=== PATIENT | female | born 1960 | race Asian ===

== ENCOUNTER 2017-06-23 11:35 | Inpatient (IN) | payer BC ==
[2017-06-23] MEDS ORDERED: ONDANSETRON 4 MG INJ IV (15:00)
[2017-06-23] MEDS: SOD CHLORIDE 0.9% 1,000 ML IV (15:39)
[2017-06-23] MEDS: LEVOFLOXACIN 750MG/D5W (PMX) 150 ML IVPB (16:31)
[2017-06-23] MEDS ORDERED: ACETAMINOPHEN 325 MG TAB PO (19:00)
[2017-06-23] MEDS ORDERED: DOCUSATE SODIUM 100 MG CAP PO (19:00)
[2017-06-24] MEDS: SOD CHLORIDE 0.9% 1,000 ML IV (04:55)
[2017-06-24] MEDS: PANTOPRAZOLE (EC) 40 MG TAB PO (05:26)
[2017-06-24] MEDS: ALBUTEROL/IPRATROPIUM (NEB) 3 ML AMP HHN ×3 (05:47→22:06)
[2017-06-24 06:11] LABS: ADD MAN DIFF? NO
[2017-06-24 06:18] LABS: WHITE BLOOD COUNT 9.6 10^3/ul (4.8-10.8)
[2017-06-24 06:18] LABS: BASOPHILS % 0.2 % (0.0-2.0); EOSINOPHILS # 0.1 10^3/ul (0.0-0.5); EOSINOPHILS % 0.8 % (0.0-7.0); HEMATOCRIT 34.4 % (37.0-47.0); HEMOGLOBIN 11.2 g/dl (12.0-16.0); LYMPHOCYTES # 1.8 10^3/ul (0.8-2.9); LYMPHOCYTES % 19.1 % (15.0-51.0); MEAN CORPUSCULAR HEMOGLOBIN 29.2 pg (29.0-33.0); MEAN CORPUSCULAR HGB CONC 32.6 g/dl (32.0-37.0); MEAN CORPUSCULAR VOLUME 89.6 fl (82.0-101.0); MEAN PLATELET VOLUME 10.4 fl (7.4-10.4); MONOCYTE # 0.7 10^3/ul (0.3-0.9); MONOCYTES % 6.9 % (0.0-11.0); NEUTROPHILS % 72.6 % (39.0-77.0); PLATELET COUNT 176 10^3/UL (140-415); RED BLOOD COUNT 3.84 10^6/ul (4.20-5.40); RED CELL DISTRIBUTION WIDTH 13.2 % (11.5-14.5)
[2017-06-24 06:56] LABS: ANION GAP 13 (8-16); BLOOD UREA NITROGEN 10 mg/dl (7-20); CALCIUM 8.7 mg/dl (8.4-10.2); CARBON DIOXIDE 27 mmol/L (21-31); CHLORIDE 110 mmol/L (97-110); CREATININE 0.68 mg/dl (0.44-1.00); GLUCOSE 97 mg/dl (70-220); POTASSIUM 3.8 mmol/L (3.5-5.1); SODIUM 146 mmol/L (135-144)
[2017-06-24] MEDS: ENOXAPARIN 30 MG/0.3 ML SYG SC (08:10)
[2017-06-24] MEDS: GUAIFENESIN/CODEINE 5ML CUP PO ×2 (12:23→17:49)
[2017-06-24] MEDS: LEVOFLOXACIN 750MG/D5W (PMX) 150 ML IVPB (16:32)
[2017-06-24] MEDS: PANTOPRAZOLE 40 MG INJ IV (17:49)
[2017-06-24] MEDS ORDERED: PANTOPRAZOLE 40 MG INJ IV (18:00)
[2017-06-25] MEDS: ZOLPIDEM 5 MG TAB PO (00:13)
[2017-06-25] MEDS: PANTOPRAZOLE 40 MG INJ IV ×2 (06:07→17:54)
[2017-06-25 06:08] LABS: ADD MAN DIFF? NO
[2017-06-25 06:13] LABS: WHITE BLOOD COUNT 8.5 10^3/ul (4.8-10.8)
[2017-06-25 06:13] LABS: BASOPHIL # 0.1 10^3/ul (0.0-0.1); BASOPHILS % 0.7 % (0.0-2.0); EOSINOPHILS # 0.2 10^3/ul (0.0-0.5); EOSINOPHILS % 2.6 % (0.0-7.0); HEMATOCRIT 36.7 % (37.0-47.0); LYMPHOCYTES # 2.4 10^3/ul (0.8-2.9); MEAN CORPUSCULAR HEMOGLOBIN 29.6 pg (29.0-33.0); MEAN CORPUSCULAR HGB CONC 32.7 g/dl (32.0-37.0); MEAN CORPUSCULAR VOLUME 90.4 fl (82.0-101.0); MONOCYTE # 0.6 10^3/ul (0.3-0.9); MONOCYTES % 6.9 % (0.0-11.0); NEUTROPHIL # 5.2 10^3/ul (1.6-7.5); NEUTROPHILS % 61.4 % (39.0-77.0); PLATELET COUNT 196 10^3/UL (140-415); RED BLOOD COUNT 4.06 10^6/ul (4.20-5.40); RED CELL DISTRIBUTION WIDTH 13.2 % (11.5-14.5)
[2017-06-25 06:42] LABS: ANION GAP 16 (8-16); BLOOD UREA NITROGEN 11 mg/dl (7-20); CALCIUM 9.2 mg/dl (8.4-10.2); CARBON DIOXIDE 29 mmol/L (21-31); CHLORIDE 106 mmol/L (97-110); CREATININE 0.77 mg/dl (0.44-1.00); GLUCOSE 87 mg/dl (70-220); POTASSIUM 4.1 mmol/L (3.5-5.1); SODIUM 147 mmol/L (135-144)
[2017-06-25] MEDS: GUAIFENESIN/CODEINE 5ML CUP PO ×3 (08:17→20:39)
[2017-06-25] MEDS: ENOXAPARIN 30 MG/0.3 ML SYG SC (08:27)
[2017-06-25] MEDS: LEVOFLOXACIN 750MG/D5W (PMX) 150 ML IVPB (15:12)
[2017-06-25] MEDS: ALBUTEROL/IPRATROPIUM (NEB) 3 ML AMP HHN (15:20)
[2017-06-26] MEDS: GUAIFENESIN/CODEINE 5ML CUP PO ×3 (04:30→23:09)
[2017-06-26] MEDS: PANTOPRAZOLE 40 MG INJ IV ×2 (06:43→17:04)
[2017-06-26 06:47] LABS: ANION GAP 16 (8-16); BLOOD UREA NITROGEN 14 mg/dl (7-20); CALCIUM 9.1 mg/dl (8.4-10.2); CARBON DIOXIDE 31 mmol/L (21-31); CHLORIDE 104 mmol/L (97-110); CREATININE 0.77 mg/dl (0.44-1.00); GLUCOSE 92 mg/dl (70-220); POTASSIUM 4.3 mmol/L (3.5-5.1); SODIUM 147 mmol/L (135-144)
[2017-06-26] MEDS: HYDROmorphONE 0.5 MG/0.5 ML SYG IV ×3 (09:19→17:06)
[2017-06-26] MEDS: BARIUM SULFATE 135 ML (E-Z HD) PO (09:21)
[2017-06-26] MEDS: ENOXAPARIN 30 MG/0.3 ML SYG SC (09:26)
[2017-06-26] MEDS ORDERED: DEXTROSE 5% 1,000 ML IV (17:00)
[2017-06-26] MEDS: LEVOFLOXACIN 750MG/D5W (PMX) 150 ML IVPB (17:05)
[2017-06-26] MEDS: DEXTROSE 5% 250 ML IV (20:45)
[2017-06-27] MEDS: DEXTROSE 5% 250 ML IV ×2 (01:38→06:45)
[2017-06-27] MEDS: PANTOPRAZOLE 40 MG INJ IV ×2 (05:28→18:22)
[2017-06-27] MEDS: ENOXAPARIN 30 MG/0.3 ML SYG SC (09:00)
[2017-06-27] MEDS ORDERED: LIDOCAINE 2% (SDV) 5 ML INJ (09:14)
[2017-06-27] MEDS ORDERED: PROPOFOL 20 ML (09:14)
[2017-06-27] MEDS: HYDROmorphONE 0.5 MG/0.5 ML SYG IV (09:51)
[2017-06-27] MEDS: METOCLOPRAMIDE 10 MG INJ IV ×3 (11:23→23:33)
[2017-06-27 14:11] LABS: NIL 0.19 IU/mL; QUANTIFERON(R)-TB GOLD NEGATIVE (NEGATIVE); TB-NIL 0.14 IU/mL
[2017-06-27] MEDS: DEXTROSE 5% 1,000 ML IV (16:30)
[2017-06-27] MEDS: LEVOFLOXACIN 750MG/D5W (PMX) 150 ML IVPB (16:38)
[2017-06-28] MEDS: DEXTROSE 5% 1,000 ML IV ×2 (00:35→03:46)
[2017-06-28] MEDS: PANTOPRAZOLE 40 MG INJ IV ×2 (05:47→17:10)
[2017-06-28] MEDS: METOCLOPRAMIDE 10 MG INJ IV ×4 (05:47→23:56)
[2017-06-28 06:58] LABS: ALANINE AMINOTRANSFERASE 24 IU/L (13-69); ALBUMIN/GLOBULIN RATIO 0.95; ALKALINE PHOSPHATASE 56 IU/L (42-121); ANION GAP 15 (8-16); ASPARTATE AMINO TRANSFERASE 25 IU/L (15-46); BILIRUBIN,INDIRECT 0.7 mg/dl (0-1.1); BILIRUBIN,TOTAL 0.7 mg/dl (0.2-1.3); BLOOD UREA NITROGEN 12 mg/dl (7-20); CALCIUM 9.4 mg/dl (8.4-10.2); CARBON DIOXIDE 28 mmol/L (21-31); CHLORIDE 105 mmol/L (97-110); CREATININE 0.74 mg/dl (0.44-1.00); GLUCOSE 101 mg/dl (70-220); POTASSIUM 3.7 mmol/L (3.5-5.1); SODIUM 144 mmol/L (135-144); TOTAL PROTEIN 8.2 g/dl (6.1-8.1)
[2017-06-28] MEDS: ENOXAPARIN 30 MG/0.3 ML SYG SC (08:54)
[2017-06-28] MEDS: LEVOFLOXACIN 750MG/D5W (PMX) 150 ML IVPB (17:04)
[2017-06-28] MEDS: GUAIFENESIN/CODEINE 5ML CUP PO (17:09)
[2017-06-28] MEDS: ZOLPIDEM 5 MG TAB PO (23:56)
[2017-06-29] MEDS: DEXTROSE 5% 250 ML IV ×7 (00:23→21:58)
[2017-06-29] MEDS: METOCLOPRAMIDE 10 MG INJ IV ×3 (05:23→17:19)
[2017-06-29] MEDS: PANTOPRAZOLE 40 MG INJ IV ×2 (05:23→17:19)
[2017-06-29] MEDS: HYDROmorphONE 0.5 MG/0.5 ML SYG IV ×4 (07:34→19:13)
[2017-06-29] MEDS: ENOXAPARIN 30 MG/0.3 ML SYG SC (10:45)
[2017-06-29] MEDS: GUAIFENESIN/CODEINE 5ML CUP PO ×2 (11:11→17:20)
[2017-06-29] MEDS: LEVOFLOXACIN 750MG/D5W (PMX) 150 ML IVPB (17:04)
[2017-06-29] MEDS: ALBUTEROL/IPRATROPIUM (NEB) 3 ML AMP HHN ×2 (17:13→22:04)
[2017-06-29] MEDS: ZOLPIDEM 5 MG TAB PO (19:59)
[2017-06-29] MEDS: HYDROCODONE/APAP (5/325) TAB PO (20:00)
[2017-06-30] MEDS: DEXTROSE 5% 250 ML IV ×8 (00:51→22:06)
[2017-06-30] MEDS: METOCLOPRAMIDE 10 MG INJ IV ×5 (00:51→23:30)
[2017-06-30] MEDS: PANTOPRAZOLE 40 MG INJ IV ×2 (05:43→18:34)
[2017-06-30] MEDS: ALBUTEROL/IPRATROPIUM (NEB) 3 ML AMP HHN ×3 (08:31→22:04)
[2017-06-30] MEDS: ENOXAPARIN 30 MG/0.3 ML SYG SC (09:00)
[2017-06-30] MEDS: PROPOFOL 20 ML (16:12)
[2017-06-30] MEDS: [UNRECOGNIZED DRUG - OTHER] INJ (16:13)
[2017-06-30] MEDS: LEVOFLOXACIN 750MG/D5W (PMX) 150 ML IVPB (16:47)
[2017-06-30] MEDS: GUAIFENESIN/CODEINE 5ML CUP PO (21:52)
[2017-07-01] MEDS: DEXTROSE 5% 250 ML IV ×7 (01:00→15:35)
[2017-07-01] MEDS: METOCLOPRAMIDE 10 MG INJ IV ×2 (05:22→12:00)
[2017-07-01] MEDS: PANTOPRAZOLE 40 MG INJ IV (05:22)
[2017-07-01 06:07] LABS: ADD MAN DIFF? NO
[2017-07-01 06:11] LABS: WHITE BLOOD COUNT 8.5 10^3/ul (4.8-10.8)
[2017-07-01 06:11] LABS: BASOPHIL # 0.1 10^3/ul (0.0-0.1); BASOPHILS % 0.7 % (0.0-2.0); EOSINOPHILS # 0.1 10^3/ul (0.0-0.5); EOSINOPHILS % 1.5 % (0.0-7.0); HEMATOCRIT 35.8 % (37.0-47.0); HEMOGLOBIN 12.1 g/dl (12.0-16.0); LYMPHOCYTES # 2.3 10^3/ul (0.8-2.9); LYMPHOCYTES % 27.2 % (15.0-51.0); MEAN CORPUSCULAR HEMOGLOBIN 29.8 pg (29.0-33.0); MEAN CORPUSCULAR HGB CONC 33.8 g/dl (32.0-37.0); MEAN CORPUSCULAR VOLUME 88.2 fl (82.0-101.0); MONOCYTE # 0.6 10^3/ul (0.3-0.9); MONOCYTES % 7.6 % (0.0-11.0); NEUTROPHIL # 5.3 10^3/ul (1.6-7.5); NEUTROPHILS % 62.8 % (39.0-77.0); PLATELET COUNT 191 10^3/UL (140-415); RED BLOOD COUNT 4.06 10^6/ul (4.20-5.40); RED CELL DISTRIBUTION WIDTH 12.6 % (11.5-14.5)
[2017-07-01 06:45] LABS: ANION GAP 15 (8-16); BLOOD UREA NITROGEN 7 mg/dl (7-20); CALCIUM 9.2 mg/dl (8.4-10.2); CARBON DIOXIDE 29 mmol/L (21-31); CHLORIDE 104 mmol/L (97-110); GLUCOSE 110 mg/dl (70-220); POTASSIUM 3.8 mmol/L (3.5-5.1); SODIUM 144 mmol/L (135-144)
[2017-07-01] MEDS: ENOXAPARIN 30 MG/0.3 ML SYG SC (09:08)
== END 2017-07-01 16:40 | disposition home or self-care (01) | DRG 178 ==
LOC: MS2 06-24 22:02
PROC: 0DJ08ZZ Inspection of Upper Intestinal Tract, Via Natural or Artificial Opening Endoscopic (ICD-10-PCS; principal; 2017-06-27 09:00)
PROC: 3E0G8GC Introduction of Other Therapeutic Substance into Upper GI, Via Natural or Artificial Opening Endoscopic (ICD-10-PCS; 2017-06-27 09:00)
DX: J69.0 Pneumonitis due to inhalation of food and vomit (principal); E87.0 Hyperosmolality and hypernatremia; Z68.1 Body mass index [BMI] 19.9 or less, adult; E44.0 Moderate protein-calorie malnutrition; K22.0 Achalasia of cardia; R13.10 Dysphagia, unspecified; K31.84 Gastroparesis; D64.9 Anemia, unspecified; E86.0 Dehydration; K29.70 Gastritis, unspecified, without bleeding; R63.4 Abnormal weight loss
CPT/HCPCS: 71045; 74230; 80048; 80053; 85025; 86480; 87400; 92526; 92611; 94640

== ENCOUNTER 2018-09-18 11:43 | Day surgery (SDC) | payer BC ==
[2018-09-18] MEDS ORDERED: PROPOFOL 40 ML (15:43)
[2018-09-18] MEDS ORDERED: LIDOCAINE 2% (SDV) 5 ML INJ (15:43)
[2018-09-18] MEDS ORDERED: FENTAnyl 50 MCG/ML VIAL (15:44)
== END 2018-09-18 20:20 | disposition home or self-care (01) ==
LOC: GIL 11:43
DX: K22.0 Achalasia of cardia (principal)
CPT/HCPCS: 43235